=== PATIENT | female | born 1960 | race African-American/Black ===

== ENCOUNTER → 2017-06-28 | Outpatient (CLI) | payer OTHER ==
[2014-11-25 07:58] VITALS: BP 132/89
--- NOTE | 2017-06-29 09:26 | US ---
HISTORY: Right upper arm lump and pain Study: Right upper extremity soft tissue ultrasound Comparison: None Technique: Multiple grayscale and color Doppler images of the right upper extremity were obtained. Findings: Targeted sonographic evaluation of the region of interest demonstrates no solid mass, fluid collectio n, or lymphadenopathy. If patient's symptoms persist or worsen, MRI without and with contrast would b e recommended. IMPRESSION: Negative right upper extremity ultrasound. Reported By:
== END ==
LOC: RAD 09:22
PROVIDERS: ATTEND Internal Medicine Rheumatology
DX: M79.601 Pain in right arm (principal)
CPT/HCPCS: 76881